=== PATIENT | female | born 1940 | race Two or more races ===

== ENCOUNTER 2017-01-29 20:59 | Inpatient (IN) | payer MEDICARE, OTHER ==
[~2017-01-29] VITALS: Ht 160 cm; Wt 79.4 kg
[2017-01-29] MEDS ORDERED: ASPIRIN 81 MG TAB.CHEW PO ONE (21:30)
--- NOTE | 2017-01-29 21:30 | NUR ---
PT BIB DAUGHTER C/O L SHOULDER PAIN, SHOOTING QUALITY, RADIATING DOWN L ARM AND TINGLING. 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 RESP EVEN UNLABORED. SKIN WARM NONDIAPHORETIC. VSS. ON MONITOR IN ER BED 09. PT PRESENTED TO ER WITH "PAIN CREME" ON L UPPER ARM COVERED WITH PLASTIC WRAP, WITH NO RELIEF.
[2017-01-29] MEDS ORDERED: ASPIRIN 81 MG TAB.CHEW ONE (21:36)
[2017-01-29 21:44] LABS: BASOPHILS % (AUTO) 0.5 % (0.0-2.0); EOSINOPHILS # (AUTO) 0.1 /CMM (0.0-0.7); EOSINOPHILS % (AUTO) 0.8 % (0.0-6.0); HEMATOCRIT 38 % (33-45); HEMOGLOBIN 12.8 g/dL (11.5-14.8); LYMPHOCYTES # (AUTO) 2.5 /CMM (0.8-4.8); LYMPHOCYTES % (AUTO) 29.4 % (20.0-44.0); MEAN CORPUSCULAR HEMOGLOBIN 31 PG (26.0-33.0); MEAN CORPUSCULAR HGB CONC 34 g/dl (31.0-36.0); MEAN CORPUSCULAR VOLUME 91 fL (82-100); MONOCYTES # (AUTO) 0.6 /CMM (0.1-1.30); MONOCYTES % (AUTO) 6.4 % (2.0-12.0); NEUTROPHILS # (AUTO) 5.4 /CMM (1.8-8.9); NEUTROPHILS % (AUTO) 62.9 % (43.0-81.0); PLATELET COUNT (AUTO) 224 /CMM (150-450); RDW COEFFICIENT OF VARIATION 12.7 (11.5-15.0); RED BLOOD CELL COUNT(AUTO) 4.13 MIL/uL (4.0-5.2); WHITE BLOOD COUNT (AUTO) 8.6 K/uL (4.3-11.0)
[2017-01-29 22:02] LABS: CALCIUM, SERUM 8.7 mg/dL (8.5-10.1); CREATININE 0.7 mg/dL (0.6-1.3)
[2017-01-29 22:03] LABS: INR 0.94 (0.87-1.13)
[2017-01-29 22:07] LABS: TROPONIN I 0.047 ng/mL (0.00-0.056)
[2017-01-29] MEDS ORDERED: MORPHINE SULFATE INJ 2 MG/ML DISP.SYRIN IV ONE (22:30)
[2017-01-29] MEDS ORDERED: ONDANSETRON HCL/PF 4 MG/2 ML VIAL IVP ONE (22:30)
[2017-01-29] MEDS ORDERED: IOHEXOL-350 100 ML VIAL IV ONE (22:34)
[2017-01-29] MEDS ORDERED: IV NS 0.9% 250 ML IV ONE (22:34)
[2017-01-29] MEDS ORDERED: ONDANSETRON HCL/PF 4 MG/2 ML VIAL ONE (22:39)
[2017-01-29] MEDS ORDERED: MORPHINE SULFATE INJ 4 MG/ML DISP.SYRIN ONE (22:39)
--- NOTE | 2017-01-29 22:59 | NUR ---
PT REFUSES MORPHINE AND ZOFRAN D/T PAIN BEING MILD. DAUGHTER STATES "SHE GETS AFFECTED BY MEDICINE". PT IS ALLERGIC TO SHELLFISH AND, PER DAUGHTER, "GETS RED AND ITCHY WHEN SHE LOOKS AT IT". DAUGHTER REPORTS PT HAS NEVER EATEN SHELLFISH BEFORE. DR MARTINI NOTIFIED AND SPOKE WITH PT/DAUGHTER. PROMOTIONS PRODUCER NOTIFIED OF PENDING NUCLEAR MED ORDER.
--- NOTE | 2017-01-30 00:35 | NUR ---
PT RESTING COMFORTABLY IN BED, NAD NOTED. VSS. CONTINUES TO REFUSE PAIN MEDICATION. PT STATES "NO MORPHINE". CHASTITY NUCLEAR MED TECH AT BEDSIDE.
--- NOTE | 2017-01-30 00:39 | NUR ---
REPORT GIVEN TO JUAN RN FOR ADMISSION
--- NOTE | 2017-01-30 00:40 | NUR ---
PT TRANSPORTED TO [facility] IN STABLE CONDITION
[2017-01-30] MEDS ORDERED: ENOXAPARIN SODIUM 40 MG/0.4 ML DISP.SYRIN SQ SCH (02:00)
[2017-01-30] MEDS ORDERED: ZOLPIDEM TARTRATE 5 MG TABLET PO PRN (02:00)
[2017-01-30] MEDS ORDERED: ONDANSETRON HCL/PF 4 MG/2 ML VIAL IVP PRN (02:00)
[2017-01-30] MEDS ORDERED: MAG HYDROX/AL HYDROX/SIMETH 30 ML UDC PO PRN (02:00)
[2017-01-30] MEDS ORDERED: HYDROCODONE/APAP 5/325MG 1 EACH TABLET PO PRN (02:00)
[2017-01-30] MEDS ORDERED: MORPHINE SULFATE INJ 2 MG/ML DISP.SYRIN IV PRN (02:00)
[2017-01-30] MEDS ORDERED: Z GUARD REMEDY 2 OZ OINT TP PRN (02:00)
[2017-01-30] MEDS ORDERED: MAGNESIUM HYDROXIDE 30 ML UDC PO PRN (02:00)
--- NOTE | 2017-01-30 02:28 | NUR ---
PT TRANSPORTED TO [facility] IN STABLE CONDITION VIA ACLS PROTOCOL
--- NOTE | 2017-01-30 02:30 | NUR ---
EDUCATION REVIEWER ADMISSION NOTE PT ARRIVED ON UNIT. AAOX4, CITIZEN OF [place] SPEAKING, FROM HOME. AMBULATORY WITH STEADY GAIT. DENIES CP/SOB AT THIS TIME. C/O SHOULDER PAIN THAT RADIATES DOWN ARM. SKIN WARM TO TOUCH, NON-DIAPHORETIC. TELE ATTACHED SHOWING SB - SR. VSS. ON ROOM AIR. SKIN INTACT. RAC INTACT AND PATENT. SPOKE WITH DTR PETR, SHE STATES THAT PT DOES NOT TAKE ANY HOME MEDICATION. ORIENTATED TO UNIT AND CALL LIGHT, WILL CONT TO MONITOR.
--- NOTE | 2017-01-30 02:45 | NUR ---
RN NOTE REFUSED LOVENOX DESPITE TEACHING AND ENCOURAGEMENT X3
[2017-01-30 03:34] VITALS: BP 119/77
--- NOTE | 2017-01-30 06:14 | NUR ---
RN NOTE NO SIGNIFICANT CHANGES. PT DENIES CP/SOB AT THIS TIME, SKIN WARM TO TOUCH - NON DIAPHORETIC. BREATHING NON-LABORED AND EVEN. R AC IAP, H/L. TELE SHOWS SR-SB 1AVB WITH PVC'S. KEPT CLEAN AND COMFORTABLE, CALL LIGHT IN REACH. WILL F/U WITH DAY SHIFT FOR KLAUS.
[2017-01-30 07:11] VITALS: BP 116/72
[2017-01-30 08:00] VITALS: BP 116/72
--- NOTE | 2017-01-30 08:00 | NUR ---
AM RN NOTE Received patient sleeping comfortably in her bed. No SOB noted resp even and non-labored. On tele monitor. Bed in low locked position. Will continue to monitor.
[2017-01-30] MEDS: PANTOPRAZOLE 40 MG TABLET.DR PO SCH (09:00)
[2017-01-30] MEDS: ASPIRIN 325 MG TABLET PO SCH (09:00)
[2017-01-30] MEDS: ENOXAPARIN SODIUM 40 MG/0.4 ML DISP.SYRIN SQ SCH (09:04)
[2017-01-30] MEDS: ACETAMINOPHEN 325 MG TABLET PO PRN (09:10)
--- NOTE | 2017-01-30 09:15 | NUR ---
AM RN NOTE Patient seen by Dr. Angela (Director Sterile Processing) with new orders. Patient c/o left shoulder pain 06/14. Offered Strawberry but patient refused, requested for Tylenol. Medication given as ordered. Will continue to monitor for effectiveness.
[2017-01-30 09:27] LABS: BASOPHILS % (AUTO) 0.3 % (0.0-2.0); EOSINOPHILS % (AUTO) 0.5 % (0.0-6.0); HEMATOCRIT 39 % (33-45); HEMOGLOBIN 12.9 g/dL (11.5-14.8); LYMPHOCYTES # (AUTO) 1.8 /CMM (0.8-4.8); LYMPHOCYTES % (AUTO) 21.6 % (20.0-44.0); MEAN CORPUSCULAR HEMOGLOBIN 30 PG (26.0-33.0); MEAN CORPUSCULAR HGB CONC 34 g/dl (31.0-36.0); MEAN CORPUSCULAR VOLUME 90 fL (82-100); MONOCYTES # (AUTO) 0.6 /CMM (0.1-1.30); MONOCYTES % (AUTO) 6.9 % (2.0-12.0); NEUTROPHILS % (AUTO) 70.7 % (43.0-81.0); PLATELET COUNT (AUTO) 234 /CMM (150-450); RDW COEFFICIENT OF VARIATION 13.4 (11.5-15.0); RED BLOOD CELL COUNT(AUTO) 4.27 MIL/uL (4.0-5.2); WHITE BLOOD COUNT (AUTO) 8.5 K/uL (4.3-11.0)
[2017-01-30 09:51] LABS: ALBUMIN 3.6 g/dL (3.4-5.0); BILIRUBIN,TOTAL 0.8 mg/dL (0.2-1.0); CALCIUM, SERUM 8.6 mg/dL (8.5-10.1); CREATININE 0.7 mg/dL (0.6-1.3); MAGNESIUM 1.9 mg/dL (1.8-2.4); PHOSPHORUS 4.2 mg/dL (2.5-4.9); POTASSIUM 4.1 mmol/L (3.5-5.1); TOTAL PROTEIN, SERUM 6.9 g/dL (6.4-8.2)
--- NOTE | 2017-01-30 13:36 | NUR ---
MRI APPROVED BY DR. DE PAZ.
[2017-01-30] MEDS ORDERED: LORAZEPAM 1 MG TABLET PO ONE (14:30)
--- NOTE | 2017-01-30 14:30 | NUR ---
AM RN NOTE Patient seen by Marilin CAPPS with new order for MRI Left shoulder. Pt awake lying in her bed and Son Varrosario at bedside, notified that patient is claustrophobic. Pt and family requesting for sedative for MRI procedure. Called Dr. Wong with new order obtained for Ativan 1mg PO x1. Family made aware. Per Tech, he will be here at 5pm for MRI and give Ativan 15 mins prior. Will continue to monitor. MRI checklist done.
[2017-01-30 16:00] VITALS: BP 98/61
--- NOTE | 2017-01-30 18:29 | NUR ---
AM RN NOTE Patient awake, A/O X4 lying in her bed with family members at bedside. MRI of left shoulder done with pending results. Will continue to monitor. Call light with in reach. Will endorse to next shift for KLAUS.
[2017-01-30 20:00] VITALS: BP 102/54
--- NOTE | 2017-01-30 23:30 | NUR ---
RN NOTES: THE PREVIOUS IV ACCESS IS REMOVED DUE TO LEAKING. NEW IV ACCESS GAUGE 22 ON THE LEFT HAND IS ESTABLISHED. WILL CONTINUE TO MONITOR.
[2017-01-31 07:11] LABS: BASOPHILS % (AUTO) 0.5 % (0.0-2.0); EOSINOPHILS # (AUTO) 0.1 /CMM (0.0-0.7); EOSINOPHILS % (AUTO) 0.9 % (0.0-6.0); HEMATOCRIT 39 % (33-45); HEMOGLOBIN 13.1 g/dL (11.5-14.8); LYMPHOCYTES # (AUTO) 2.1 /CMM (0.8-4.8); LYMPHOCYTES % (AUTO) 28.3 % (20.0-44.0); MEAN CORPUSCULAR HEMOGLOBIN 31 PG (26.0-33.0); MEAN CORPUSCULAR HGB CONC 34 g/dl (31.0-36.0); MEAN CORPUSCULAR VOLUME 91 fL (82-100); MONOCYTES # (AUTO) 0.6 /CMM (0.1-1.30); MONOCYTES % (AUTO) 7.6 % (2.0-12.0); NEUTROPHILS # (AUTO) 4.6 /CMM (1.8-8.9); NEUTROPHILS % (AUTO) 62.7 % (43.0-81.0); PLATELET COUNT (AUTO) 223 /CMM (150-450); RDW COEFFICIENT OF VARIATION 13.2 (11.5-15.0); RED BLOOD CELL COUNT(AUTO) 4.23 MIL/uL (4.0-5.2); WHITE BLOOD COUNT (AUTO) 7.4 K/uL (4.3-11.0)
--- NOTE | 2017-01-31 07:34 | NUR ---
AM RN NOTE Received patient sleeping comfortably in her bed. No SOB noted resp even and non-labored. Skin W/D to touch. Bed in low locked position. IV site intact and patent. Will continue to monitor.
[2017-01-31 08:00] VITALS: BP 101/64
[2017-01-31 08:07] LABS: CALCIUM, SERUM 8.5 mg/dL (8.5-10.1); CREATININE 0.7 mg/dL (0.6-1.3); MAGNESIUM 1.9 mg/dL (1.8-2.4); PHOSPHORUS 4.3 mg/dL (2.5-4.9); POTASSIUM 4.6 mmol/L (3.5-5.1)
[2017-01-31] MEDS: ACETAMINOPHEN 325 MG TABLET PO PRN (08:09)
[2017-01-31] MEDS: PANTOPRAZOLE 40 MG TABLET.DR PO SCH (08:09)
[2017-01-31] MEDS: ASPIRIN 325 MG TABLET PO SCH (08:09)
[2017-01-31] MEDS: ENOXAPARIN SODIUM 40 MG/0.4 ML DISP.SYRIN SQ SCH (08:14)
--- NOTE | 2017-01-31 14:00 | NUR ---
AM RN NOTE Patient seen and assessed by Dr. Wong with new order to discharge pt home. Discharge paperwork done and signed by Son (Gio). Belongings endorsed and signed. Patient denies any acute distress at this time. MD aware about all abnormal labs. Will continue to monitor.
--- NOTE | 2017-01-31 14:11 | NUR ---
AM RN NOTE Patient awake, A/OX 3. ID band and HL removed. Skin intact. Patient discharged/left unit at this time as accompanied by Son with all her belongings.
== END 2017-01-31 14:10 | disposition home or self-care (01) | DRG 558 ==
LOC: ER 21:03 → TELE 01-30 00:27 → MED 01-30 09:18
PROVIDERS: ADMIT Internal Medicine; ATTEND Internal Medicine
DX: M75.42 Impingement syndrome of left shoulder (principal); J98.11 Atelectasis; I51.7 Cardiomegaly; Z82.49 Family history of ischemic heart disease and other diseases of the circulatory system; Z91.013 Allergy to seafood; M25.512 Pain in left shoulder; I35.0 Nonrheumatic aortic (valve) stenosis
CPT/HCPCS: 36415; 71010-TC; 73030-TC; 73200-TC; 73221-TC; 78582; 80048-TC; 80053-TC; 80061-TC; 83735-TC; 84100-TC; 84484-TC; 85025-TC; 85730-TC; 87081-TC; 93307-TC; 97001-TC; A4606; A9540; A9567; J1650; J2270; J2405; J7050; Q9967; Z7610

== ENCOUNTER 2021-04-08 17:54 | Inpatient (IN) | payer MEDICARE, OTHER ==
[~2021-04-08] VITALS: Ht 149.9 cm; Wt 74.4 kg
--- NOTE | 2021-04-08 18:10 | NUR ---
CHLOE ABRAHAM "[place] speaking only Family called 911 she apparently fainted in the kitchen. [id number]" Patient a/ox4, breathing even and unlabored, interviewed with a rhinestone setter. Patient remembered feeling nauseous before passing out. Denies any complaints at this time.
[2021-04-08 18:49] LABS: BASOPHILS % (AUTO) 0.4 % (0.0-2.0); EOSINOPHILS % (AUTO) 0.1 % (0.0-6.0); HEMATOCRIT 41 % (33-45); HEMOGLOBIN 13.9 g/dL (11.5-14.8); LYMPHOCYTES # (AUTO) 1.4 /CMM (0.8-4.8); LYMPHOCYTES % (AUTO) 15.6 % (20.0-44.0); MEAN CORPUSCULAR HGB CONC 34 g/dl (31.0-36.0); MEAN CORPUSCULAR VOLUME 94 fL (82-100); MONOCYTES # (AUTO) 0.6 /CMM (0.1-1.30); NEUTROPHILS # (AUTO) 6.8 /CMM (1.8-8.9); NEUTROPHILS % (AUTO) 76.9 % (43.0-81.0); PLATELET COUNT (AUTO) 265 /CMM (150-450); WHITE BLOOD COUNT (AUTO) 8.9 K/uL (4.3-11.0)
[2021-04-08 19:01] LABS: ALBUMIN 3.9 g/dL (3.4-5.0); BILIRUBIN,DIRECT 0.1 mg/dL (0.0-0.2); BILIRUBIN,TOTAL 0.3 mg/dL (0.2-1.0); CALCIUM, SERUM 9.1 mg/dL (8.5-10.1); CREATININE 0.9 mg/dL (0.6-1.3); TOTAL PROTEIN, SERUM 7.4 g/dL (6.4-8.2)
--- NOTE | 2021-04-08 19:05 | NUR ---
REC'D REPORT FROM RUDDY ARIZMENDI FOR KLAUS
--- NOTE | 2021-04-08 19:33 | NUR ---
DIANAID SWABBED, SENT TO LAB.
--- NOTE | 2021-04-08 20:25 | NUR ---
RAMONA SANDERSON DNP PAGED PER ER ORDER.
--- NOTE | 2021-04-08 20:49 | NUR ---
CALLED MARTHA, RAMONA SANDERSON PAGED
--- NOTE | 2021-04-08 21:08 | NUR ---
GAVE REPORT TO RUDDY CALVILLO FOR KLAUS
--- NOTE | 2021-04-08 21:09 | NUR ---
ER TALKING TO RAMONA SANDERSON DNP REGARDING PT ADMISSION.
[2021-04-08 22:00] VITALS: BP 106/68
[2021-04-08] MEDS ORDERED: ACETAMINOPHEN 325 MG TABLET PO PRN (23:00)
[2021-04-08] MEDS ORDERED: ONDANSETRON HCL/PF 4 MG/2 ML VIAL IVP PRN (23:00)
[2021-04-08] MEDS ORDERED: Z GUARD REMEDY 2 OZ OINT TP PRN (23:00)
[2021-04-08 23:33] LABS: CHOLESTEROL 268 mg/dL (<200); HDL CHOLESTEROL 43 mg/dL (40-60); LDL 173 mg/dL (0-99); TRIGLYCERIDES 129 mg/dL (30-150)
[2021-04-08] MEDS: IV NS 0.9% 1,000 ML IV PRN (23:52)
[2021-04-08] MEDS: ENOXAPARIN SODIUM 40 MG/0.4 ML DISP.SYRIN SQ SCH (23:55)
[2021-04-09 04:00] VITALS: BP 124/60
[2021-04-09 06:42] LABS: BASOPHILS # (AUTO) 0.1 /CMM (0.0-0.2); BASOPHILS % (AUTO) 0.8 % (0.0-2.0); EOSINOPHILS % (AUTO) 0.5 % (0.0-6.0); HEMATOCRIT 36 % (33-45); HEMOGLOBIN 12.3 g/dL (11.5-14.8); LYMPHOCYTES # (AUTO) 2.6 /CMM (0.8-4.8); LYMPHOCYTES % (AUTO) 30.6 % (20.0-44.0); MEAN CORPUSCULAR HGB CONC 34 g/dl (31.0-36.0); MEAN CORPUSCULAR VOLUME 94 fL (82-100); MONOCYTES # (AUTO) 0.7 /CMM (0.1-1.30); MONOCYTES % (AUTO) 8.4 % (2.0-12.0); NEUTROPHILS # (AUTO) 5.1 /CMM (1.8-8.9); NEUTROPHILS % (AUTO) 59.7 % (43.0-81.0); PLATELET COUNT (AUTO) 235 /CMM (150-450); RED BLOOD CELL COUNT(AUTO) 3.85 MIL/uL (4.0-5.2); WHITE BLOOD COUNT (AUTO) 8.5 K/uL (4.3-11.0)
[2021-04-09 06:49] LABS: CALCIUM, SERUM 8.7 mg/dL (8.5-10.1); CREATININE 0.7 mg/dL (0.6-1.3); MAGNESIUM 2.2 mg/dL (1.8-2.4); POTASSIUM 4.3 mmol/L (3.5-5.1)
--- NOTE | 2021-04-09 06:53 | NUR ---
TELE/RN CLOSING NOTES PATIENT IS IN BED RESTING. PATIENT IS ALERT AND ORIENTED X 4. PATIENT BREATHING IS EVEN AND UNLABORED NO SIGNS OF SOB OR RESPIRATORY DISTRESS NOTED. PATIENT IV ACCESS IS INTACT AND FLUSHING WELL. PT CONNECTED TO TELE MONITOR. ALL NEEDS HAVE BEEN MET.SAFETY MEASURE ARE IN PLACE, BED IS LOCKED AND PLACED IN THE LOWEST POSITION, SIDE RAILS UP X 2 CALL LIGHT WITHIN REACH. WILL CONTINUE WITH PATIENT PLAN OF CARE.
[2021-04-09 07:06] LABS: THYROID STIMULATING HORMONE 2.714 uIU/mL (0.358-3.74)
--- NOTE | 2021-04-09 07:10 | NUR ---
DISEASE CASE MANAGER RN OPENING NOTES PATIENT IN BED ALERT AND ORIENTED, GERMAN-SPEAKING ONLY. PATIENT ON MODERATE TO HIGH BACK REST. PATIENT WITH EVEN AND UNLABORED BREATHING WITH NO SIGNS OF DISTRESS. PATIENT WITH IV PERIPHERAL LINE ON THE LEFT HAND G18 WITH IV FLUID NS AT 75ML/HR PATENT AND INFUSING WELL. PATIENT DOES NOT COMPLAIN OF PAIN OR DISCOMFORT. SAFETY MEASURES IN PLACE. WITH BED LOCKED AND LOWERED FOR SAFETY. CALL LIGHT WITHIN REACH AT ALL TIMES. WILL CONTINUE TO MONITOR PATIENT.
[2021-04-09] MEDS: PANTOPRAZOLE 40 MG TABLET.DR PO SCH (07:30)
[2021-04-09] MEDS ORDERED: ROSU40TA23 PO (07:59)
[2021-04-09] MEDS ORDERED: DEXL60CA3 PO (07:59)
[2021-04-09] MEDS ORDERED: NEBI5TAB8 PO (07:59)
[2021-04-09] MEDS ORDERED: MYRBETRIQ PO (07:59)
[2021-04-09] MEDS ORDERED: ICOS1CAP PO (07:59)
[2021-04-09 08:00] VITALS: BP 88/53
--- NOTE | 2021-04-09 08:06 | NUR ---
BUILDING INSULATION SUPERVISOR NOTES PATIENT REFUSED PROTONIX, INTERPRETAION DONE BY DAUGHTER SULEIMAN. PER PATIENT, SHE DOESN'T NEED IT. WILL CONTINUE TO MONITOR PATIENT.
[2021-04-09] MEDS ORDERED: ASPIRIN EC 81 MG TABLET.DR PO SCH ×2 (09:00→21:00)
--- NOTE | 2021-04-09 09:12 | NUR ---
PATIENT WITH DUE MEDICATION OF ASPIRIN BUT PATIENT INSIST THAT SHE TAKES IT AT 2100 FOR 7 YEARS AND REFUSED TO TAKE ONE NOW. PHARMACIST DAVID UPDATED OF PATIENT'S REQUEST. COMFORT MEASURES PROVIDED. WILL CONTINUE TO MONITOR PATIENT.
--- NOTE | 2021-04-09 11:15 | NUR ---
DIP STAND LOADER NOTES RECEIVED A CALL FROM PATIENT'S SISTER, PATRICE DIGGS . SISTER GAVE HER INFORMATION. WILL ENDORSE TO NEXT SHIFT. Addendum: 04/09/21 at 1735 by LIANA VITALE RN PLEASE DISREGARD THIS CHARTING
[2021-04-09 12:00] VITALS: BP 109/71
[2021-04-09 13:08] LABS: BILIRUBIN,URINE NEGATIVE (NEGATIVE); COLOR,URINE DARK YELLOW (YELLOW); LEUKOCYTE ESTERASE ,URINE NEGATIVE (NEGATIVE); NITRITE, URINE NEGATIVE (NEGATIVE); PH,URINE 5.5 (5.0-8.0); PROTEIN,URINE NEGATIVE (NEGATIVE); UGLUCOSE NEGATIVE (NEGATIVE); UROBILINOGEN,URINE 0.2 EU/dL (0.2)
[2021-04-09 13:24] LABS: RBC,URINE NONE SEEN /HPF (0-2); WBC,URINE NONE SEEN /HPF (0-3)
[2021-04-09 13:25] LABS: BACTERIA,URINE None seen /HPF (None Seen); SQUAMOUS EPITHELIAL CELL,UR Rare /HPF (None Seen); URINE AMORPHOUS URATE Many /HPF (None Seen)
[2021-04-09 16:00] VITALS: BP 105/53
--- NOTE | 2021-04-09 19:27 | NUR ---
TESTING DIRECTOR CLOSING NOTES PATIENT IS IN ASLEEP BUT EASILY AROUSABLE. PATIENT IS ALERT AND ORIENTED X 4 AND SPEAKS ONLY YI. PATIENT BREATHING IS EVEN AND UNLABORED WITH NO SIGNS OF RESPIRATORY DISTRESS. PATIENT IV ACCESS ON LEFT HAND G18 COVERED WITH TEGADERM, INTACT WITH NO SIGNS OF INFLAMMATION. WITH ONGOING IVF NS AT 75ML/HR INFUSING WELL. PATIENT CONNECTED TO TELE MONITOR READING SINUS RHYTHYM 58. ALL NEEDS ATTENDED. SAFETY MEASURE ARE IN PLACE, BED IS LOCKED AND PLACED IN THE LOWEST POSITION, SIDE RAILS UP X 2 AND CALL LIGHT WITHIN REACH. AT ALL TIMES. WILL ENDORSE PATIENT TO NEXT SHIFT FOR CONTINUITY OF CARE.
--- NOTE | 2021-04-09 19:30 | NUR ---
TELE/RN OPENING NOTES RECEIVED PATIENT IN BED ALERT AND ORIENTED X 4, NORTH KOREAN-SPEAKING ONLY. PATIENT WITH EVEN AND UNLABORED BREATHING WITH NO SIGNS OF RESPIRATORY DISTRESS. PATIENT WITH IV PERIPHERAL LINE ON THE LEFT HAND G18 WITH IV FLUID NS AT 75ML/HR PATENT AND INFUSING WELL. PATIENT DOES NOT COMPLAIN OF PAIN AT THIS TIME. SAFETY MEASURES IN PLACE, WITH BED LOCKED AND LOWERED FOR SAFETY. CALL LIGHT WITHIN REACH AT ALL TIMES. WILL CONTINUE WITH PATIENT PLAN OF CARE.
[2021-04-09 20:00] VITALS: BP 118/74
[2021-04-09] MEDS: ENOXAPARIN SODIUM 40 MG/0.4 ML DISP.SYRIN SQ SCH (21:22)
[2021-04-09] MEDS ORDERED: ATORVASTATIN 10 MG TABLET PO SCH (22:00)
[2021-04-10] VITALS: BP 120/68
[2021-04-10 04:00] VITALS: BP 126/65
[2021-04-10] MEDS: IV NS 0.9% 1,000 ML IV PRN (06:08)
[2021-04-10 06:17] LABS: BASOPHILS % (AUTO) 0.8 % (0.0-2.0); EOSINOPHILS % (AUTO) 1.1 % (0.0-6.0); HEMATOCRIT 36 % (33-45); HEMOGLOBIN 12.3 g/dL (11.5-14.8); LYMPHOCYTES # (AUTO) 2.7 /CMM (0.8-4.8); LYMPHOCYTES % (AUTO) 42.3 % (20.0-44.0); MEAN CORPUSCULAR HGB CONC 34 g/dl (31.0-36.0); MEAN CORPUSCULAR VOLUME 93 fL (82-100); MONOCYTES # (AUTO) 0.5 /CMM (0.1-1.30); MONOCYTES % (AUTO) 7.8 % (2.0-12.0); NEUTROPHILS # (AUTO) 3.1 /CMM (1.8-8.9); PLATELET COUNT (AUTO) 211 /CMM (150-450); WHITE BLOOD COUNT (AUTO) 6.5 K/uL (4.3-11.0)
--- NOTE | 2021-04-10 06:50 | NUR ---
TELE/RN CLOSING NOTES PATIENT IN BED RESTING, ALERT AND ORIENTED X 4, ENGLISH-SPEAKING ONLY. PATIENT EVEN AND UNLABORED BREATHING WITH NO SIGNS OF RESPIRATORY DISTRESS. PATIENT WITH IV PERIPHERAL LINE ON THE LEFT HAND G18 WITH IV FLUID NS AT 75ML/HR PATENT AND INFUSING WELL. PATIENT DOES NOT COMPLAIN OF PAIN AT THIS TIME. ALL PATIENT NEEDS HAVE BEEN MET DURING SHIFT. SAFETY MEASURES IN PLACE, WITH BED LOCKED AND LOWERED FOR SAFETY. CALL LIGHT WITHIN REACH AT ALL TIMES. WILL ENDORSE CARE TO DAY SHIFT NURSE.
[2021-04-10 07:06] LABS: CALCIUM, SERUM 8.8 mg/dL (8.5-10.1); CREATININE 0.7 mg/dL (0.6-1.3); POTASSIUM 5.1 mmol/L (3.5-5.1)
--- NOTE | 2021-04-10 07:15 | NUR ---
MARKETING AND DEVELOPMENT COORDINATOR OPENING NOTES PATIENT IN BED ALERT AND ORIENTED, KHMER-SPEAKING. PATIENT ON MODERATE TO HIGH BACK REST. PATIENT WITH EVEN AND UNLABORED BREATHING WITH NO SIGNS OF DISTRESS. PATIENT WITH IV PERIPHERAL LINE ON THE LEFT HAND G18 WITH IV FLUID NS AT 75ML/HR PATENT AND INFUSING WELL. PATIENT DOES NOT COMPLAIN OF PAIN OR DISCOMFORT. SAFETY MEASURES IN PLACE. WITH BED LOCKED AND LOWERED FOR SAFETY. CALL LIGHT WITHIN REACH AT ALL TIMES. WILL CONTINUE TO MONITOR PATIENT.
[2021-04-10] MEDS: PANTOPRAZOLE 40 MG TABLET.DR PO SCH (07:30)
--- NOTE | 2021-04-10 07:54 | NUR ---
CONSTRUCTION IRONWORKER NOTES PATIENT REFUSED ORAL MEDICATION PANTOPRAZOLE. SHE SAID SHE DOESN'T NEED IT. PATIENT HEALTH TEACHING DONE REGARDING ACTIONS AND USES OF PANTOPRAZOLE PATIENT VERBALIZED UNDERSTANDING AND APPRECIATION. WILL CONTINUE TO MONITOR PATIENT.
[2021-04-10 08:00] VITALS: BP 107/66
[2021-04-10] MEDS ORDERED: Medication Not On Formulary EA ([Myrbetriq] 25 MG) PO SCH (09:00)
[2021-04-10] MEDS ORDERED: Medication Not On Formulary EA (Icosapent Ethyl (Vascepa) 2 CAP) PO SCH (09:00)
--- NOTE | 2021-04-10 13:12 | NUR ---
COOK CHIEF NOTES PATIENT SEEN BY DR. MADDEN. DR. MADDEN SPOKE WITH PATIENT'S DAUGHTER USING THE PATIENT'S PHONE.
--- NOTE | 2021-04-10 14:00 | NUR ---
BOAT OUTFITTING SUPERVISOR NOTES PATIENT VISITED BY DAUGHTER PETR AND OPTED TO TAKE PATIENT HOME. DAUGHTER AND PATIENT AWARE THAT THERE IS NO ORDER FOR DISCHARGE YET. BOTH PATIENT AND DAUGHTER AGREED TO GO HOME AGAINST MEDICAL ADVISE. HEALTH TEACHINGS DONE REGARDING DISCHARGE AGAINST MEDICAL ADVISE. PATIENT AND DAUGHTER VERBALIZED UNDERSTANDING AND APPRECIATION. AMA FORM SIGNED AND ATTACHED TO CHART. DR. SEAY NOTIFIED OF PATIENT/ FAMILY'S DECISION. REMOVED PATIENT'S PERIPHERAL IV ACCESS AND COVERED WITH BANDAID. WITH NO SIGNS AND SYMPTOMS OF BLEEDING. PATIENT ACCOMPANIED BY NURSE TO LOBBY WITH DAUGHTER FOR DISCHARGE AGAINST MEDICAL ADVICE. PATIENT IN STABLE CONDITION. Addendum: 04/10/21 at 1739 by LIANA VITALE RN CHARGE NURSE DOMINGUEZ AWARE OF PATIENT AND FAMILY'S DECISION TO GO HOME AGAINST MEDICAL ADVICE.
--- NOTE | 2021-04-10 14:00 | NUR ---
MS RN NOTE PATIENT AND DAUGHTER PETR WAS IN A HURRY AND SAID THEY HAVE THE CELL PHONE AND THAT IT IS OKAY NOT TO SIGN THE PAPER FOR THE INVENTORY LIST.
== END 2021-04-10 16:00 | disposition left against medical advice (07) | DRG 65 ==
LOC: ER 17:56 → TELE 21:22 → MED 04-10 08:47
PROVIDERS: ADMIT Nurse Practitioner Acute Care; ATTEND Hospitalist
DX: I63.9 Cerebral infarction, unspecified (principal); D68.59 Other primary thrombophilia; G90.8 Other disorders of autonomic nervous system; Z20.822 Contact with and (suspected) exposure to COVID-19; Z91.013 Allergy to seafood; I48.91 Unspecified atrial fibrillation; R73.9 Hyperglycemia, unspecified; E78.5 Hyperlipidemia, unspecified; I70.0 Atherosclerosis of aorta; E66.9 Obesity, unspecified; Z68.33 Body mass index [BMI] 33.0-33.9, adult; W18.30XA Fall on same level, unspecified, initial encounter; Y92.9 Unspecified place or not applicable; Z82.49 Family history of ischemic heart disease and other diseases of the circulatory system
CPT/HCPCS: 36415; 70450-TC; 71045-TC; 80048-TC; 80061-TC; 80076-TC; 81001; 83735-TC; 84100-TC; 84443-TC; 84484-TC; 85025-TC; 85730-TC; 87081-TC; 93307-TC; 93880-TC; 97116-TC; 97530-TC; C9803; G0378; J1650; J7040